=== PATIENT | male | born 1980 | race Caucasian/White ===

== ENCOUNTER 2020-02-28 17:00 | Emergency (ER) | payer BC ==
[2020-02-28] MEDS ORDERED: Budesonide 0.5 MG/2 ML Neb Susp NEB ONE (17:47)
[2020-02-28] MEDS ORDERED: Albuterol 8 GM Inhaler INH ONE (18:30)
[2020-02-28] MEDS ORDERED: predniSONE 10 MG Tab ONE (18:30)
--- NOTE | 2020-02-28 20:10 | ER ---
HISTORY OF PRESENT ILLNESS: 39-year-old male who comes into the emergency room, brought in by his coworkers with complaints of wheezing and shortness of breath. 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 The patient states this has happened before, he usually goes outside and take some fresh air and it gets better. Today it got worse where it felt like it locked up in the central part of his chest. He was given a nebulizer treatment immediately upon arriving at the ER. By the time I saw the patient, he was partway through his neb treatment and his breathing was significantly better. He states that it started to improve even shortly before arriving at our door. The patient does not have history of asthma, but states he has had an albuterol inhaler 10 or 12 years ago that he used for a short time. He tells me in the fall it seems like when the weather changes, he usually has problems like this for a while but not this bad. OBJECTIVE: GENERAL APPEARANCE: The patient is awake and alert. No obvious respiratory distress at this time. VITAL SIGNS: Reviewed. Blood pressure 122/93, O2 sats are 96%. PULMONARY: Lung exam reveals minimal wheezing in the left lower lobe with fairly good air exchange throughout the lung august. Treatment Measures: After the DuoNeb treatment was given, we gave the patient a Pulmicort neb treatment and he states that he does not feel short of breath, but there is just a small amount of tightness still in the central part of the lungs. He has not been coughing and has not been sick recently. DIAGNOSIS: Reactive airway disease. TREATMENT PLAN: We will send the patient home with albuterol inhaler form 2 puffs every 4 hours while awake for the next couple of days and then he can go to p.r.n. dosing if his symptoms are obviously continuing to improve. I will also start him on a short burst of prednisone taken orally. Activity should be as tolerated. I do want the patient to follow up within a few days with his primary care provider or local provider for a recheck and further evaluation. He should have a methacholine challenge test soon to determine if he does in fact have asthma. The patient has no further questions and agrees with the treatment plan. CRS/MODL /[id number]
== END 2020-02-28 18:35 | disposition home or self-care (01) ==
LOC: LB.ED 17:00
DX: J45.909 Unspecified asthma, uncomplicated (principal)
CPT/HCPCS: 99284; A9270; J7512

== ENCOUNTER 2021-04-02 21:28 | Emergency (ER) | payer OTHER, BC ==
--- NOTE | 2021-04-03 10:21 | CT ---
DATE OF SERVICE: 04/02/2021 CLINICAL DATA: Syncopal episode. UNENHANCED BRAIN CT: Multislice axial acquisition was performed. No priors. No masses or mass effect. No intracranial hemorrhage. No evidence of acute or subacute infarct. No osseous abnormalities. IMPRESSION: Normal exam. [id number] MTDD
--- NOTE | 2021-04-10 06:39 | EDM.PDOC ---
ED HPI GENERAL MEDICAL PROBLEM - General Chief Complaint: General Stated Complaint: FALL Time Seen by Provider: 04/02/21 21:30 - History of Present Illness INITIAL COMMENTS - FREE TEXT/NARRATIVE: Pt comes in with C/O passing out and falling into a bin that he was dumping grain into. He injured his head and left ear. He is not sure how he fell. He does have some bruising below his lt eye. He denies any chest pain, SOB, nausea or vomiting. Left Head Pain Score (Numeric/FACES): 3 - Related Data Allergies Allergy/AdvReac Type Severity Reaction Status Date / Time No Known Allergies Allergy Verified 04/02/21 22:13 Home Meds: Home Meds Mometasone/Formoterol [Dulera 200 MCG/5 MCG] 1 inh PO DAILY 04/02/21 [History] Past Medical History HEENT History: Reports: Impaired Vision Musculoskeletal History: Reports: Fracture, Osteoarthritis, Other (See Below) Other Musculoskeletal History: left clavicle fracture in high school Social & Family History - Caffeine Use Caffeine Use: Reports: Coffee, Soda ED ROS GENERAL - Review of Systems Review Of Systems: Comprehensive ROS is negative, except as noted in HPI. Musculoskeletal: Reports: Other (injury to forehead and lt ear.) Neurological: Reports: Syncope ED EXAM, GENERAL - Physical Exam Exam: See Below Eye Exam: Bilateral Eye: EOMI, PERRL Ears: Other (he has a laceration of the lt ear lobe that is thru the lobe. 2 cm in length. seeping blood.) ED GENERAL MEDICAL PROCEDURES - Laceration/Wound Repair Left Ear Lac/wound length in cm: 2 Appearance: Other (It is thru the ear lobe.) Anesthetic Type: Local Local Anesthesia - Lidocaine (Xylocaine): 1% Plain Skin Prep: Providone-Iodine (Betadine) Closed with: Sutures Suture Size: 5-0 # of Sutures: 5 Suture Type: Nylon #1 Interpretation EKG Date: 04/02/21 Time: 22:00 Course - Vital Signs Last Recorded V/S: Last Vital Signs Temp 98 F 04/02/21 22:10 Pulse 66 04/02/21 22:10 Resp 18 04/02/21 22:10 BP 139/94 H 04/02/21 22:10 Pulse Ox 97 04/02/21 22:10 Orthostatic Blood Pressure [ 145/90 Standing] Orthostatic Blood Pressure [ 141/86 Sitting] Orthostatic Blood Pressure [ 144/90 Supine] - Orders/Labs/Meds Labs: Laboratory Tests 04/02/21 04/02/21 Range/Units 23:06 23:06 WBC 8.3 D (4.0-11.0) K/uL RBC 5.13 (4.50-6.50) M/uL Hgb 15.3 (13.0-18.0) g/dL Hct 43.6 (40.0-54.0) % MCV 85 (76-96) fL MCH 29.8 (27.0-32.0) pg MCHC 35.1 H (31.0-35.0) g/dL RDW 13.2 (11.0-16.0) % Plt Count 162 (150-400) K/uL MPV 10.7 H (6.0-10.0) fL Neut % (Auto) 66.4 (45.0-70.0) % Lymph % (Auto) 24.8 (20.0-40.0) % [place] % (Auto) 6.7 (3.0-10.0) % Eos % (Auto) 2.0 (1.0-5.0) % Baso % (Auto) 0.1 (0.0-0.5) % Neut # (Auto) 5.52 (2.00-7.50) K/uL Lymph # (Auto) 2.07 (1.50-4.00) K/uL [place] # (Auto) 0.56 (0.20-0.80) K/uL Eos # (Auto) 0.17 (0.04-0.40) K/uL Baso # (Auto) 0.01 L (0.02-0.10) K/uL Sodium 140 (136-145) mmol/L Potassium 4.0 (3.5-5.1) mmol/L Chloride 105 (98-107) mmol/L Carbon Dioxide 25.7 (21.0-32.0) mmol/L Anion Gap 13.3 (5.0-15.0) mmol/L BUN 13 (8-26) mg/dL Creatinine 1.14 (0.70-1.30) mg/dL Est Cr Clr Drug Dosing 79.73 mL/min Estimated GFR (MDRD) > 60 (>60) MLS/MIN BUN/Creatinine Ratio 11.4 (6-25) Glucose 93 (74-100) mg/dL Calcium 8.5 (8.5-10.1) mg/dL Total Bilirubin 0.7 (0.0-1.0) mg/dL AST 21 (15-37) U/L ALT 29 (12-78) U/L Alkaline Phosphatase 58 (46-116) U/L Total Protein 6.8 (6.4-8.2) g/dL Albumin 3.9 (3.4-5.0) g/dL Globulin 2.9 (2.2-4.2) g/dL Albumin/Globulin Ratio 1.3 (0.8-2.0) - Re-Assessments/Exams Free Text/Narrative Re-Assessment/Exam: 04/09/21 16:[address], labs, and EKG are nml. Pt has been monitored here with no worsening of symptoms. He will be discharged home with his Mom. He is to be monitored closely, use OTC meds prn for pain. It is hard to determine if he fell, hit his head and passed out, or passed out and fell. He could have easily slipped and fell first. He needs to follow up in the clinic for re check in 1-2 days. Pt agree's and has no further questions. Departure - Departure Time of Disposition: 01:00 Disposition: Home, Self-Care 01 Condition: Good Clinical Impression: Syncope Qualifiers: Syncope type: unspecified Qualified Code(s): R55 - Syncope and collapse - Discharge Information *PRESCRIPTION DRUG MONITORING PROGRAM REVIEWED*: Yes *COPY OF PRESCRIPTION DRUG MONITORING REPORT IN PATIENT SOPHIE: Yes Instructions: Head Injury, Adult Referrals: PCP,Unknown [Ordering Only Provider] - Forms: ED Department Discharge Care Plan Goals: Tyl, Motrin for aches and pains. Ice as needed. CT and EKG were normal. Labs are normal. Stitches out in 1 week. Activity as tolerated.
== END 2021-04-03 00:10 | disposition home or self-care (01) ==
LOC: LB.ED 21:28
DX: S01.312A Laceration without foreign body of left ear, initial encounter (principal); R55 Syncope and collapse; W18.39XA Other fall on same level, initial encounter; W26.8XXA Contact with other sharp object(s), not elsewhere classified, initial encounter
CPT/HCPCS: 12011; 36415; 70450; 80053; 85025; 93005; 99284-25